=== PATIENT | female | born 1960 | race Caucasian/White ===

== ENCOUNTER → 2016-08-22 | Outpatient (CLI) | payer BC ==
[~2016-08-22] MED LIST: ACET-2723 PO; ASCO500T9 PO; CALC600T12 PO; FEXO1TAB11 PO; IBUP-1724 PO; LACT1CAP73 PO; MULT-175 PO; OMEP20CA10 PO; VITA1TAB21 PO
== END ==
LOC: WC.BC 11:12
DX: Z12.31 Encounter for screening mammogram for malignant neoplasm of breast (principal); N64.59 Other signs and symptoms in breast
CPT/HCPCS: 77063; G0202